=== PATIENT | female | born 1955 | race African-American/Black ===

== ENCOUNTER → 2016-11-07 16:34 | Outpatient (CLI) | payer MEDICARE ==
[2016-04-18 15:26] VITALS: BMI 38.8
[~2016-11-07 16:34] MED LIST: ADVAIR 250/501 DISK INH; ALENDRONATE SOD70 MG PO; BAYER CHEWABLE81 MG PO; BENZONATATE200 MG PO; CALCIUM 600+D T1 TA1 PO; CARTIA XT240 MG PO; CYCLOBENZAPRINE10 MG PO; DITROPAN X10 MG/BOTT PO; FEXOFENADINE H180 MG PO; FLUTICASONE PRO16 GM NS; KLOR-CON 1010 MEQ PO; LASIX20 MG PO; LEVAQUIN500 MG PO; MIRALAX17 GM PO; MUCINEX D1 TAB.SR . PO; MUCINEX DM ER1 EAC1 PO; MULTI-DAY VITAM1 TAB PO; NEXIUM40 MG PO; OXYBUTYNIN CHLOR5 MG PO; PEPCID20 MG PO; PLAQUENIL200 MG PO; PROBIOTIC1 EAC1 PO; PULMICORT0.5 MG/21 INH; QVAR8.7 G1 INH; SINGULAIR10 MG PO; STERAPRED DS 1210 MG PO; SYNTHROID50 MCG PO; TESSALON PERLE100 MG PO; XOPENEX HFA15 GM INH; ZANTAC150 MG PO; ZETIA10 MG PO; ZYLOPRIM300 MG PO
== END | disposition home or self-care (01) ==
LOC: D.MAMMO 11-05 11:00
DX: Z12.31 Encounter for screening mammogram for malignant neoplasm of breast (principal)

== ENCOUNTER 2017-02-14 17:12 | Emergency (ER) | payer MEDICARE ==
[2016-04-18 15:26] VITALS: BMI 38.8
[2017-02-14 20:19] LABS: BASOPHILS 0 % (0-2); EOSINOPHILS 0.2 % (0-7); HEMATOCRIT 44.8 % (36.0-48.0); HEMOGLOBIN 14.5 g/dL (12-16); IMMATURE GRANULOCYTES 0.2 % (0-5); MCH 29.1 pg (26.0-34.0); MCHC 32.4 g/dL (31.0-37.0); MCV 89.8 fL (80.0-100.0); MEAN PLATELET VOLUME 10.1 fL (7.4-10.4); MONOCYTES 4.8 % (2-11); NEUTROPHILS 81.8 % (40-80); PLATELET COUNT 258 10x3/uL (130-400); RBC 4.99 10x6/uL (4.00-5.40); WBC 8.1 10x3/uL (4.8-10.8)
[2017-02-14 20:28] LABS: INR 1.09 (0.85-1.17); PROTIME 13.9 SECONDS (11.6-15.0)
[2017-02-14 20:33] LABS: ALBUMIN 3.6 g/dL (3.4-5.0); ANION GAP 12.9 mmol/L (8-16); BILIRUBIN - TOTAL 0.43 mg/dL (0.2-1.3); CALCIUM 8.8 mg/dL (8.5-10.1); CARBON DIOXIDE 28.1 mmol/L (21.0-32.0); CREATININE - SERUM 0.9 mg/dL (0.6-1.3); MAGNESIUM - SERUM 2.4 mg/dL (1.8-2.4); PROTEIN - SERUM 7.4 g/dL (6.4-8.2)
== END 2017-02-14 20:55 | disposition home or self-care (01) ==
LOC: D.ER 17:12
PROVIDERS: Emergency Medicine
DX: R10.9 Unspecified abdominal pain (principal); R11.10 Vomiting, unspecified; I10 Essential (primary) hypertension

== ENCOUNTER → 2017-06-06 07:26 | Outpatient (CLI) | payer MEDICARE ==
[2016-04-18 15:26] VITALS: BMI 38.8
== END | disposition home or self-care (01) ==
LOC: D.RT 06-03 10:00 → D.RAD 06-03 11:15 → D.RT 07:26
DX: J45.909 Unspecified asthma, uncomplicated (principal)

== ENCOUNTER → 2017-09-24 09:18 | Outpatient (CLI) | payer MEDICARE ==
[2016-04-18 15:26] VITALS: BMI 38.8
== END | disposition home or self-care (01) ==
LOC: D.CT 09:18
DX: D86.89 Sarcoidosis of other sites (principal)

== ENCOUNTER 2018-02-25 13:28 | Day surgery (SDC) | payer MEDICARE ==
[~2018-02-25] VITALS: Ht 157.5 cm; Wt 96.4 kg
--- NOTE | ~2018-02-25 | OP ---
PATIENT NAME: ALTAF JHA MEDICAL RECORD: [id number] :55 LOCATION:D.OPS ADMISSION DATE: SURGEON: BHAVESH KING MD DATE OF OPERATION: 02/25/2018 PROCEDURE: EGD with biopsy. REFERRING PHYSICIAN: Missy Zheng MD INDICATIONS: Ms. Jah is a delightful 62-year-old woman with history of sarcoidosis, COPD, and asthma, who has a history of gastritis. Her last EGD on 01/19/2016 showed a distal esophageal ring, which was dilated; small sliding-type hiatal hernia; gastritis; and several duodenal bulbar nodules. Duodenal biopsies showed Tracey's gland hyperplasia. Gastric biopsies showed minimal chronic gastritis with focal incipient intestinal metaplasia. H. pylori negative. Mid and distal esophageal biopsy showed chronic active esophagitis, mild (reflux type). She has been having some symptoms of nausea, but her reflux has been well controlled on Zantac 150 mg twice a day. Previously, she had been on Nexium for many years. She presents for outpatient EGD. PREMEDICATIONS: Total IV anesthesia (COPD, sarcoidosis), propofol 210 mg. INSTRUMENT: Olympus video gastroscope. PROCEDURE AND FINDINGS: After receiving informed consent, Ms. Jha's posterior pharynx was anesthetized with Cetacaine spray. She was placed in left lateral decubitus position and sedated as per anesthesia. After achieving adequate level of sedation, gastroscope was introduced per orally and advanced to the duodenum without difficulty. The esophageal mucosa was without erythema, ulcers, strictures, or masses; appeared normal down the GE junction. Small sliding-type hiatal hernia was present. There were streaks of erythema in the antrum and antral biopsies were obtained to rule out Helicobacter pylori or intestinal metaplasia. In the distal body of the stomach, was a cluster of 3-4 shallow ulcers, nonhemorrhagic. No visible vessels. Biopsies were taken around the ulcer bases. No lesions were seen in cardia or fundus. Pylorus was patent and competent. Duodenal mucosa was without erythema or ulcers, appeared normal to the second portion. Gastroscope was then withdrawn. Ms. Jha tolerated procedure well. No immediate complications. ASSESSMENT: 1. Small sliding-type hiatal hernia. 2. Mild gastritis. 3. Gastric ulcers in the body of the stomach, possibly a sequela of recent Medrol Dosepak. However, rule out H. pylori. 4. Nausea. RECOMMENDATIONS: 1. Followup histopathology. 2. Continue Zantac 150 mg twice a day. 3. Continue sucralfate t.i.d. 4. Recommend Protonix 40 mg daily for 3 months and then followup EGD in 3 months to document healing of gastric ulcers. TRANSINT:[id number] Voice Confirmation ID: [id number] DOCUMENT ID: [id number] OPERATIVE REPORT [id number] ALTAF JHA TERRI MD at 1832 CC: MISSY ZHENG [id number] DICTATION DATE: 02/25/18 1615 WINE MERCHANT: 02/25/18 1638 [facility] 02/25/18 [address] [place] [address]
[2018-02-25 14:03] LABS: HEMATOCRIT 42.8 % (36.0-48.0); HEMOGLOBIN 14.1 g/dL (12-16); MCHC 32.9 g/dL (31.0-37.0); MCV 87.9 fL (80.0-100.0); MEAN PLATELET VOLUME 9.9 fL (7.4-10.4); RBC 4.87 10x6/uL (4.00-5.40); RDW 14.3 % (11.5-14.5); WBC 7.3 10x3/uL (4.8-10.8)
[2018-02-25 14:16] LABS: ANION GAP 10.7 mmol/L (8-16); CALCIUM 9.2 mg/dL (8.5-10.1); CARBON DIOXIDE 28.6 mmol/L (21.0-32.0); CREATININE - SERUM 0.9 mg/dL (0.6-1.3); POTASSIUM - SERUM 3.3 mmol/L (3.5-5.1)
[2018-02-25] MEDS ORDERED: ELIQUIS5 MG PO (14:25)
[2018-02-25] MEDS ORDERED: ADVAIR 100/501 DISK INH (14:30)
[2018-02-25 14:39] VITALS: Ht 157.5 cm; Wt 96.4 kg
== END 2018-02-25 17:00 | disposition home or self-care (01) ==
LOC: D.OPS 13:28
PROVIDERS: Anesthesiology
DX: K25.9 Gastric ulcer, unspecified as acute or chronic, without hemorrhage or perforation (principal); K29.70 Gastritis, unspecified, without bleeding; K44.9 Diaphragmatic hernia without obstruction or gangrene

== ENCOUNTER → 2018-04-24 16:28 | Outpatient (CLI) | payer MEDICARE ==
[2018-02-25 14:39] VITALS: BMI 38.8
[~2018-04-24 16:28] MED LIST changes: +ADVAIR 100/501 DISK INH; +ELIQUIS5 MG PO
== END | disposition home or self-care (01) ==
LOC: D.MAMMO 16:15
DX: Z12.31 Encounter for screening mammogram for malignant neoplasm of breast (principal)

== ENCOUNTER 2018-06-05 13:44 | Day surgery (SDC) | payer MEDICARE ==
[~2018-06-05] VITALS: Ht 157.5 cm; Wt 97.3 kg
--- NOTE | ~2018-06-05 | OP ---
PATIENT NAME: ALTAF JHA MEDICAL RECORD: [id number] :55 LOCATION:[facility] ADMISSION DATE: SURGEON: BHAVESH KING MD DATE OF OPERATION: 06/05/2018 REFERRING PHYSICIAN: Missy Zheng MD INDICATIONS: Ms. Jha is a delightful 62-year-old woman with a history of sarcoidosis, COPD, asthma, and gastric ulcers. Her last EGD on 02/25/2018 (for evaluation of nausea) showed a small sliding-type hiatal hernia, mild gastritis, and superficial gastric ulcers in the body of the stomach, possibly sequelae of recent Medrol Dosepak. Biopsies from the antrum were negative for Helicobacter pylori. She has been on Protonix 40 mg daily, Zantac 150 mg twice a day, and sucralfate 1 gram three times a day. She presents for followup EGD. PREMEDICATIONS: Total IV anesthesia (ASA IV), propofol 200 mg. INSTRUMENT: Olympus video gastroscope. PROCEDURE AND FINDINGS: After receiving informed consent, Ms. Jha's posterior pharynx was anesthetized with Cetacaine spray, placed in the left lateral decubitus position, and sedated as per anesthesia. After achieving an adequate level of sedation, gastroscope was introduced per orally and advanced to the duodenum without difficulty. The esophageal mucosa was without erythema, ulcers, strictures, or masses; and appeared normal down the GE junction. Small hiatal hernia was present. Gastric mucosa was notable for mild streaks of erythema in the antrum and the antral biopsies were obtained. The previously seen ulcers in the gastric body had healed. No lesions were seen in the cardia or fundus. Pylorus was patent and competent. Duodenal mucosa was without erythema or ulcers, appeared normal to the second portion. Gastroscope was then withdrawn. Ms. Jha tolerated the procedure well. No immediate complications. ASSESSMENT: 1. Healed gastric ulcers. 2. Mild gastritis. 3. Small hiatal hernia. RECOMMENDATIONS: 1. Followup histopathology. 2. Continue Protonix 40 mg daily. 3. Ranitidine 150 mg twice a day. 4. Sucralfate 1 gram three times a day. TRANSINT:[id number] Voice Confirmation ID: [id number] DOCUMENT ID: [id number] BHAVESH KING MD at 6452 CC: MISSY ZHENG [id number] DICTATION DATE: 06/05/18 1527 BLOOD BANK BUSINESS MANAGER: 06/05/182057 [facility] 06/05/18 [facility] [address] [place] [address]
[2018-06-05 14:19] LABS: HEMATOCRIT 40.1 % (36.0-48.0); HEMOGLOBIN 13.3 g/dL (12-16); MCH 28.9 pg (26.0-34.0); MCHC 33.2 g/dL (31.0-37.0); RBC 4.61 10x6/uL (4.00-5.40); RDW 14.2 % (11.5-14.5); WBC 6.9 10x3/uL (4.8-10.8)
[2018-06-05 14:39] VITALS: BP 130/63; Ht 157.5 cm; Wt 97.3 kg
== END 2018-06-05 16:55 | disposition home or self-care (01) ==
LOC: D.OPS 13:44
PROVIDERS: Anesthesiology
DX: K29.70 Gastritis, unspecified, without bleeding (principal); K44.9 Diaphragmatic hernia without obstruction or gangrene; Z87.11 Personal history of peptic ulcer disease; D86.9 Sarcoidosis, unspecified; J44.9 Chronic obstructive pulmonary disease, unspecified; Z01.812 Encounter for preprocedural laboratory examination

== ENCOUNTER → 2018-06-06 10:48 | Outpatient (CLI) | payer MEDICARE ==
[2018-06-05 14:39] VITALS: BMI 39.2
== END | disposition home or self-care (01) ==
LOC: D.RT 10:48
DX: D86.0 Sarcoidosis of lung (principal)

== ENCOUNTER → 2018-07-02 10:58 | Outpatient (CLI) | payer MEDICARE ==
[2018-06-05 14:39] VITALS: BMI 39.2
== END | disposition home or self-care (01) ==
LOC: D.CT 10:58
DX: D86.0 Sarcoidosis of lung (principal)

== ENCOUNTER → 2018-08-13 12:38 | Outpatient (CLI) | payer MEDICARE ==
[2018-06-05 14:39] VITALS: BMI 39.2
[2018-08-13 13:30] LABS: BASOPHILS 0.1 % (0-2); EOSINOPHILS 0.2 % (0-7); HEMOGLOBIN 13.7 g/dL (12-16); IMMATURE GRANULOCYTES 0.5 % (0-5); LYMPHOCYTES 7.5 % (15-50); MCH 28.5 pg (26.0-34.0); MCHC 33.4 g/dL (31.0-37.0); MCV 85.2 fL (80.0-100.0); MEAN PLATELET VOLUME 9.5 fL (7.4-10.4); MONOCYTES 2.8 % (2-11); NEUTROPHILS 88.9 % (40-80); PLATELET COUNT 303 10x3/uL (130-400); RBC 4.81 10x6/uL (4.00-5.40); RDW 14.6 % (11.5-14.5); WBC 16.1 10x3/uL (4.8-10.8)
[2018-08-13 13:48] LABS: ALBUMIN 3.4 g/dL (3.4-5.0); ANION GAP 17.6 mmol/L (8-16); BILIRUBIN - TOTAL 0.22 mg/dL (0.2-1.3); CARBON DIOXIDE 24.5 mmol/L (21.0-32.0); POTASSIUM - SERUM 4.1 mmol/L (3.5-5.1); PROTEIN - SERUM 7.3 g/dL (6.4-8.2)
== END | disposition home or self-care (01) ==
LOC: D.LAB 12:38
PROVIDERS: Internal Medicine Pulmonary Disease
DX: D86.0 Sarcoidosis of lung (principal)

== ENCOUNTER → 2018-11-05 07:46 | Outpatient (CLI) | payer MEDICARE ==
[2018-06-05 14:39] VITALS: BMI 39.2
[2018-11-05 09:54] LABS: ALBUMIN 3.8 g/dL (3.4-5.0); ANION GAP 15.3 mmol/L (8-16); BILIRUBIN - TOTAL 0.34 mg/dL (0.2-1.3); CALCIUM 9.2 mg/dL (8.5-10.1); POTASSIUM - SERUM 3.3 mmol/L (3.5-5.1); PROTEIN - SERUM 7.6 g/dL (6.4-8.2)
[2018-11-06 07:32] LABS: VITAMIN D 25 HYDROXY 39.5 ng/mL (30.0-100.0)
== END | disposition home or self-care (01) ==
LOC: D.RT 07:46
PROVIDERS: ATTEND Internal Medicine Pulmonary Disease
DX: J45.909 Unspecified asthma, uncomplicated (principal); D86.0 Sarcoidosis of lung

== ENCOUNTER → 2019-01-21 07:55 | Outpatient (CLI) | payer MEDICARE ==
[2018-06-05 14:39] VITALS: BMI 39.2
== END | disposition home or self-care (01) ==
LOC: D.HCCARDIO 07:55
PROVIDERS: ATTEND Internal Medicine Cardiovascular Disease
DX: I10 Essential (primary) hypertension (principal)

== ENCOUNTER → 2019-06-02 08:00 | Outpatient (CLI) | payer MEDICARE ==
[2018-06-05 14:39] VITALS: BMI 39.2
== END ==
LOC: D.MAMMO 04-28 10:15
PROVIDERS: ATTEND Family Medicine
DX: Z12.31 Encounter for screening mammogram for malignant neoplasm of breast (principal)

== ENCOUNTER → 2019-06-30 12:30 | Outpatient (CLI) | payer MEDICARE ==
[2018-06-05 14:39] VITALS: BMI 39.2
== END | disposition home or self-care (01) ==
LOC: D.RAD 12:30
PROVIDERS: ATTEND Internal Medicine Pulmonary Disease
DX: J47.9 Bronchiectasis, uncomplicated (principal)

== ENCOUNTER 2019-09-28 13:33 | Day surgery (SDC) | payer MEDICARE ==
[~2019-09-28] VITALS: Ht 157.5 cm; Wt 103.6 kg
[2019-09-28 14:22] LABS: ANION GAP 12.3 mmol/L (8-16); CARBON DIOXIDE 28.7 mmol/L (21.0-32.0)
[2019-09-28] MEDS ORDERED: PEPCID AC20 MG PO (14:26)
[2019-09-28 14:37] VITALS: BP 142/62; Ht 157.5 cm; Wt 103.6 kg
[2019-09-28] MEDS ORDERED: TRESIBA FL100 UNIT/1 SC (14:40)
[2019-09-28 14:53] LABS: HEMATOCRIT 42.3 % (36.0-48.0); HEMOGLOBIN 13.5 g/dL (12-16); MCH 28.4 pg (26.0-34.0); MCHC 31.9 g/dL (31.0-37.0); MCV 89.1 fL (80.0-100.0); MEAN PLATELET VOLUME 9.9 fL (7.4-10.4); RBC 4.75 10x6/uL (4.00-5.40); RDW 14.1 % (11.5-14.5); WBC 8.4 10x3/uL (4.8-10.8)
--- NOTE | 2019-09-28 17:07 | NUR ---
1630 IV REMOVED AND INSTRUCTIONS GIVEN. PT WILL CALL IN THE MORNING ABOUT ELIQUEST. PT ON HOME O2
--- NOTE | 2019-09-29 16:37 | OP ---
PATIENT NAME: ALTAF JHA MEDICAL RECORD: [id number] :55 LOCATION:DElyOPS ADMISSION DATE: SURGEON: WILLEM GARCIA DO DATE OF OPERATION: 09/28/2019 PROCEDURE: EGD with biopsies. INDICATIONS FOR PROCEDURE: Dysphagia, epigastric pain, and nausea. SCOPE: Olympus video gastroscope. MEDICATIONS: Propofol 200 mg IV per anesthesia. ESTIMATED BLOOD LOSS: Minimal. COMPLICATIONS: None. FINDINGS: Informed consent was given. The patient was made comfortable with the above medication. After reaching an adequate level of sedation by slow IV push, the patient was placed on her left side. The endoscope was advanced under direct visualization through the mouth to the second portion of the duodenum with ease. The esophagus appeared normal down to the GE junction. At the GE junction, there was evidence of LA class A reflux-induced esophagitis. Cold forceps, biopsies were taken from the squamocolumnar junction to rule out the presence of Escobar's mucosa. The endoscope was advanced beyond the GE junction into the stomach and retroflexed to view the cardia, where a very small sliding hiatal hernia was present. The fundus of the stomach appeared normal. In the body and antrum of the stomach, there were streaky and patchy erythematous areas that appeared somewhat friable. There were also some granular areas within the body of the stomach itself. Appearances were consistent with mild gastritis. Random cold forceps biopsies were taken from the antrum and incisura to submit for histopathology and to rule out the presence of H. pylori. The endoscope was advanced beyond the pylorus into the duodenum, which appeared normal to the second portion. Cold forceps, biopsies were taken randomly to submit for histopathology. The endoscope was withdrawn from the patient. The patient tolerated the procedure well and there were no immediate complications. IMPRESSION: 1. LA class A reflux-induced esophagitis. 2. Small sliding hiatal hernia. 3. Mild gastritis. PLAN AND RECOMMENDATIONS: 1. Discharge home when recovery parameters are met. 2. Follow up biopsy specimen results. 3. Gastric emptying scan to evaluate the pain and nausea. 4. Continue Pepcid 40 mg daily, but change to evening dosing and start omeprazole 40 mg daily in the a.m. or equivalent PPI. We will continue PPI for 60 days, then reevaluate to see if this can be discontinued or not. 5. Follow up in GI clinic in 4-6 weeks. TRANSINT:[id number] Voice Confirmation ID: [id number] DOCUMENT ID: [id number] OPERATIVE REPORT [id number] ALTAF JHA NATHAN A DO at 1637 CC: [id number] DICTATION DATE: 09/28/19 1540 OFFSHORING MANAGER: 09/28/19 2219 [facility] 09/28/19 [id number] [place] [address]
== END 2019-09-28 16:40 | disposition home or self-care (01) ==
LOC: D.OPS 13:33
PROVIDERS: Anesthesiology; ATTEND Internal Medicine Gastroenterology
DX: R13.10 Dysphagia, unspecified (principal); R10.13 Epigastric pain; R11.0 Nausea; K21.0 Gastro-esophageal reflux disease with esophagitis; K44.9 Diaphragmatic hernia without obstruction or gangrene; K29.60 Other gastritis without bleeding; Z86.010 Personal history of colon polyps; K57.32 Diverticulitis of large intestine without perforation or abscess without bleeding; K59.09 Other constipation

== ENCOUNTER 2019-10-01 15:31 | Inpatient (IN) | payer MEDICARE ==
[~2019-10-01] VITALS: Ht 157.5 cm; Wt 105.5 kg
[~2019-10-01 15:31] MED LIST changes: +PEPCID AC20 MG PO; +TRESIBA FL100 UNIT/1 SC
--- NOTE | 2019-10-01 16:07 | NUR ---
PATIENT TO ROOM AT THIS TIME. NO COMPLAINTS OR SIGNS OF DISTRESS. VS STABLE. O2 PLACED AT 2L CALL LIGHT WITHIN RECH.
[2019-10-01 16:19] VITALS: BP 96/69; Ht 157.5 cm; Wt 105.5 kg
--- NOTE | 2019-10-01 16:39 | NUR ---
IV SITED TO LEFT FOREARM AFTER 2 ATTEPTS WITH 22G. TOLERATED WITHOUT C/O
--- NOTE | 2019-10-01 17:30 | NUR ---
PATIENT 20G STARTED IN RIGHT AC. BY PRAVEEN BAIG. X 1 STICK. PTIENT TOLERATED WITH SMALL AMOUNT OF PAIN. WAITING FOR CTA TO BE COMPLETED. CALL LIGHT WITHIN REACH.
--- NOTE | 2019-10-01 17:50 | NUR ---
PATIENT 20G. BLOWN. MED IMG. TECH STATED SHE FLUSHED IT AND IT BLEW. IV REMOVED WITH CATH TIP INTACT. CALL LIGHT WITHIN REACH.
[2019-10-01 18:01] LABS: BASOPHILS 0.1 % (0-2); EOSINOPHILS 0.5 % (0-7); HEMATOCRIT 39.5 % (36.0-48.0); HEMOGLOBIN 12.9 g/dL (12-16); IMMATURE GRANULOCYTES 0.2 % (0-5); LYMPHOCYTES 10.7 % (15-50); MCH 29.1 pg (26.0-34.0); MCHC 32.7 g/dL (31.0-37.0); MEAN PLATELET VOLUME 9.4 fL (7.4-10.4); MONOCYTES 6.3 % (2-11); NEUTROPHILS 82.2 % (40-80); PLATELET COUNT 308 10x3/uL (130-400); RBC 4.44 10x6/uL (4.00-5.40); RDW 14.1 % (11.5-14.5)
[2019-10-01 18:15] LABS: APTT 28.5 SECONDS (22.8-39.4); INR 1.17 (0.85-1.17); PROTIME 14.9 SECONDS (11.6-15.0)
[2019-10-01 18:16] LABS: ALBUMIN 3.6 g/dL (3.4-5.0); ANION GAP 11.3 mmol/L (8-16); BILIRUBIN - TOTAL 0.37 mg/dL (0.2-1.3); CALCIUM 9.2 mg/dL (8.5-10.1); CARBON DIOXIDE 29.1 mmol/L (21.0-32.0); CREATININE - SERUM 1.1 mg/dL (0.6-1.3); D-DIMER-QUANTITATIVE 0.29 ug/mLFEU (0.20-0.54); MAGNESIUM - SERUM 2.2 mg/dL (1.8-2.4); POTASSIUM - SERUM 3.4 mmol/L (3.5-5.1); PROTEIN - SERUM 7.7 g/dL (6.4-8.2)
--- NOTE | 2019-10-01 18:59 | NUR ---
20 G. RESTARTED IN RIGHT FA X 1 STICK. CALLED MEDICAL IMAGING AND LET THEM KNOW. PATIENT TOLERATED WITH SMALL AMOUNT OF PAIN. CALL LIGHT WITHIN REACH.
[2019-10-01 20:00] VITALS: BP 156/87
[2019-10-01 21:05] LABS: NITRITE NEGATIVE (NEGATIVE)
[2019-10-01 21:06] LABS: BILIRUBIN NEGATIVE (NEGATIVE); GLUCOSE NEGATIVE (NEGATIVE); KETONE NEGATIVE (NEGATIVE); UROBILINOGEN NORMAL (NORMAL)
[2019-10-01 21:08] LABS: BACTERIA FEW /hpf (NEGATIVE); RED CELLS - URINE OCC /hpf (0-5); WHITE CELLS - URINE 0-5 /hpf (NEGATIVE)
[2019-10-02] VITALS: BP 146/81
[2019-10-02 04:00] VITALS: BP 127/72
--- NOTE | 2019-10-02 06:34 | NUR ---
ASSESSED AT THE BEGINNING OF THE SHIFT. PT IS ALERT AND ORIENTED, ABLE TO VERBALIZE NEEDS. AT THE BEGINNING OF THE SHIFT SHE WAS TAKEN TO HAVE A CAT SCAN AND THEN RETURNED. SHE HAS BEEN UP TO THE BATHROOM AD LISA AND HAD NOT HAD ANY PROBLEMS DURING THE NIGHT. AT THIS TIME SHE IS AWAKE AND GETTING READ FOR THE DAY.
--- NOTE | 2019-10-02 07:45 | NUR ---
SITTING UP AT BEDSIDE WITH EYES OPEN, ALERT AND ORIENTED. IV LOCATED TO LEFT FOREARM CURRENTLY RUNNING NS @ 100ML. NO S/S OF DISTRESS, DENIES NEEDS AT THIS TIME, WILL CONT TO MONITOR.
[2019-10-02 08:43] VITALS: BP 150/78
--- NOTE | 2019-10-02 10:11 | NUR ---
Rehab Note- Acute Inpatient REhab prescreen order received. The patient has not had her PT Eval completed to see her physical mobility. Will continue to follow at this time. Thank you for this referral! Barbara Boyle RN Clinical Liaison, [facility] Rehab
[2019-10-02 10:15] LABS: HEMATOCRIT 42.3 % (36.0-48.0); HEMOGLOBIN 13.4 g/dL (12-16); LYMPHOCYTES 5.3 % (15-50); MCHC 31.7 g/dL (31.0-37.0); MCV 88.5 fL (80.0-100.0); MEAN PLATELET VOLUME 9.6 fL (7.4-10.4); NEUTROPHILS 93.8 % (40-80); PLATELET COUNT 315 10x3/uL (130-400); RBC 4.78 10x6/uL (4.00-5.40); RDW 13.8 % (11.5-14.5)
[2019-10-02 10:25] LABS: WBC 7.2 10x3/uL (4.8-10.8)
[2019-10-02 10:46] LABS: ALBUMIN 3.7 g/dL (3.4-5.0); ANION GAP 14.9 mmol/L (8-16); BILIRUBIN - TOTAL 0.31 mg/dL (0.2-1.3); CALCIUM 9.1 mg/dL (8.5-10.1); CARBON DIOXIDE 25.3 mmol/L (21.0-32.0); PROTEIN - SERUM 7.7 g/dL (6.4-8.2)
[2019-10-02 10:48] LABS: POTASSIUM - SERUM 4.2 mmol/L (3.5-5.1)
[2019-10-02 12:12] VITALS: BP 153/87
--- NOTE | 2019-10-02 16:35 | NUR ---
OT NOTE: PT COMPLETED SIT TO STAND WITH SBA. PT COMPLETED EOB SITTING WITH SBA EATING SNACK AT BEDSIDE TABLE. PT COMPLETED UE AROM WITH FUNCTIONAL ACTIVITIES. PT IS COOPERATIVE AND MOTIVATED. [phone] THANK YOU,BAMBI NGUYEN
[2019-10-02 17:03] VITALS: BP 154/90
[2019-10-02 20:26] VITALS: BP 148/83
[2019-10-03] VITALS (7 sets, daily range): BP systolic 119–166; BP diastolic 59–94
[2019-10-03 05:39] LABS: BASOPHILS 0 % (0-2); EOSINOPHILS 0 % (0-7); HEMATOCRIT 37.3 % (36.0-48.0); HEMOGLOBIN 12.1 g/dL (12-16); IMMATURE GRANULOCYTES 0.3 % (0-5); LYMPHOCYTES 3.9 % (15-50); MCH 28.4 pg (26.0-34.0); MCHC 32.4 g/dL (31.0-37.0); MCV 87.6 fL (80.0-100.0); MEAN PLATELET VOLUME 9.9 fL (7.4-10.4); MONOCYTES 1.3 % (2-11); NEUTROPHILS 94.5 % (40-80); PLATELET COUNT 291 10x3/uL (130-400); RBC 4.26 10x6/uL (4.00-5.40); RDW 14.3 % (11.5-14.5)
[2019-10-03 05:41] LABS: WBC 14.7 10x3/uL (4.8-10.8)
[2019-10-03 06:05] LABS: ALBUMIN 3.1 g/dL (3.4-5.0); BILIRUBIN - TOTAL 0.25 mg/dL (0.2-1.3); CALCIUM 8.5 mg/dL (8.5-10.1); CREATININE - SERUM 0.9 mg/dL (0.6-1.3); PROTEIN - SERUM 7.2 g/dL (6.4-8.2)
--- NOTE | 2019-10-03 09:21 | NUR ---
SHE IS WEARING 2 LITERS NC. NO SOB. DENIES ANY NEEDS.
--- NOTE | 2019-10-03 19:10 | NUR ---
ALERT AND ORIENTED. WEARING 2L NC. HAS RFA IV THAT IS INFUSING NS @ 100. INSTRUCTED ON NEED OF SPUTUM CULTURE. CALL LIGHT IN REACH. CPOC.
--- NOTE | 2019-10-03 20:35 | NUR ---
TYLENOL PROVIDED WITH HS MEDICATIONS FOR COMPLAINTS OF ACHING IN CHEST. PATIENT STATES "IT FEELS LIKE THE PLEURISY PAIN I'VE HAD BEFORE." TOELRATED MEDICATIONS WELL. DENIES FURTHER NEEDS. CALL LIGHT IN REACH. CPOC.
--- NOTE | 2019-10-03 23:00 | NUR ---
I have reviewed this patient and I concur with the Shift Assessment completed by the Licensed Practical Nurse today this shift.
[2019-10-04] VITALS: BP 148/78
[2019-10-04 04:00] VITALS: BP 103/49
[2019-10-04 06:39] LABS: BASOPHILS 0 % (0-2); EOSINOPHILS 0 % (0-7); HEMATOCRIT 39.6 % (36.0-48.0); IMMATURE GRANULOCYTES 0.4 % (0-5); LYMPHOCYTES 3.7 % (15-50); MCH 28.8 pg (26.0-34.0); MCHC 32.8 g/dL (31.0-37.0); MCV 87.6 fL (80.0-100.0); MONOCYTES 1.5 % (2-11); NEUTROPHILS 94.4 % (40-80); PLATELET COUNT 334 10x3/uL (130-400); RBC 4.52 10x6/uL (4.00-5.40); RDW 14.4 % (11.5-14.5); WBC 13.4 10x3/uL (4.8-10.8)
[2019-10-04 07:13] LABS: ALBUMIN 3.5 g/dL (3.4-5.0); ANION GAP 14.8 mmol/L (8-16); BILIRUBIN - TOTAL 0.3 mg/dL (0.2-1.3); CALCIUM 8.8 mg/dL (8.5-10.1); CARBON DIOXIDE 24.7 mmol/L (21.0-32.0); CREATININE - SERUM 0.9 mg/dL (0.6-1.3); MAGNESIUM - SERUM 2.3 mg/dL (1.8-2.4); PHOSPHOROUS 3.8 mg/dL (2.5-4.9); POTASSIUM - SERUM 3.5 mmol/L (3.5-5.1); PROTEIN - SERUM 7.7 g/dL (6.4-8.2)
[2019-10-04 08:38] VITALS: BP 132/74
[2019-10-04 12:33] VITALS: BP 152/89
[2019-10-04 17:07] VITALS: BP 151/85
--- NOTE | 2019-10-04 18:09 | NUR ---
SHE IS WEARING 2 LITERS NC. NO SOB, DENIES ANY NEEDS AT THIS PRESENT TIME.
[2019-10-04 20:00] VITALS: BP 108/33
[2019-10-05] VITALS: BP 138/77
--- NOTE | 2019-10-05 01:50 | NUR ---
I have reviewed this patient and I concur with the Shift Assessment completed by the Licensed Practical Nurse today this shift.
[2019-10-05 02:42] LABS: BILIRUBIN NEGATIVE (NEGATIVE); GLUCOSE 100 mg/dL (NEGATIVE); KETONE NEGATIVE (NEGATIVE); NITRITE NEGATIVE (NEGATIVE); SPECIFIC GRAVITY 1.015 (1.005-1.020); UROBILINOGEN NORMAL (NORMAL)
[2019-10-05 04:00] VITALS: BP 143/83
[2019-10-05 05:17] LABS: BASOPHILS 0 % (0-2); EOSINOPHILS 0 % (0-7); HEMATOCRIT 38.2 % (36.0-48.0); HEMOGLOBIN 12.5 g/dL (12-16); IMMATURE GRANULOCYTES 0.4 % (0-5); LYMPHOCYTES 5.4 % (15-50); MCH 28.4 pg (26.0-34.0); MCHC 32.7 g/dL (31.0-37.0); MCV 86.8 fL (80.0-100.0); MEAN PLATELET VOLUME 10.1 fL (7.4-10.4); MONOCYTES 7.1 % (2-11); NEUTROPHILS 87.1 % (40-80); PLATELET COUNT 331 10x3/uL (130-400); RDW 14.1 % (11.5-14.5); WBC 11.6 10x3/uL (4.8-10.8)
[2019-10-05 06:05] LABS: ALBUMIN 3.2 g/dL (3.4-5.0); ANION GAP 10.6 mmol/L (8-16); BILIRUBIN - TOTAL 0.2 mg/dL (0.2-1.3); CALCIUM 8.6 mg/dL (8.5-10.1); CARBON DIOXIDE 27.2 mmol/L (21.0-32.0); CREATININE - SERUM 0.9 mg/dL (0.6-1.3); POTASSIUM - SERUM 3.8 mmol/L (3.5-5.1); PROTEIN - SERUM 7.2 g/dL (6.4-8.2)
[2019-10-05 08:56] VITALS: BP 140/76
--- NOTE | 2019-10-05 09:13 | NUR ---
HER IV IS OUT, IT WAS LEAKING. NO SOB, WEARING HER 2 LITERS NC PRN. HAD A SHOWER. NO NEW NEEDS.
--- NOTE | 2019-10-05 13:23 | MORECARE ---
CASE MANAGEMENT DISCHARGE SUMMARY PATIENT: ALTAF JHA UNIT: [id number] ADM DATE: 10/01/19 AGE: 63 : 55 SEX: F ROOM/BED: D.2211 AUTHOR: AMNA CARRASCO PHYSICIAN: REFERRING PHYSICIAN: MISSY ZHENG MD DATE OF SERVICE: 10/05/19 Discharge Plan Patient Name[facility]TAF [facility]HA [facility] [facility] 1955 Planned Disposition: Home or Self Care Anticipated Discharge Date: Discharge Date: Expected LOS: Initial Reviewer: [email or web address] Initial Review Date: 10/01/2019 Generated: 10/05/19 2:22 pm DCPIA - Discharge Planning Initial Assessment Updated by [email or web address]: An Colon on 10/05/19 1:21 pm * Is the patient Alert and Oriented? Yes * How many steps to enter\exit or inside your home? * PCP MARCE * Pharmacy [facility] * Preadmission Environment Home Alone * ADLs Independent * Equipment Nebulizer Oxygen * List name and contact numbers for known caregivers / representatives who currently or will assist patient after discharge: HEBERT ATKINS (SISTER) [phone] * Verbal permission to speak to the caregivers and representatives has been obtained from the patient. N/A * Community resources currently utilized None * Additional services required to return to the preadmission environment? No * Can the patient safely return to the preadmission environment? Yes * Has this patient been hospitalized within the prior 30 days at any hospital? No Patient Name: ALTAF JHA Page [id number] at 1323 All edits/amendments must be made on the electronic document DICTATION DATE: 10/05/19 1322 VENETIAN BLIND ASSEMBLER: ANCA 10/05/19 1322 RPT#: [id number] DC DATE: STATUS: ADM IN [facility] [address] [place] [address] END OF REPORT
--- NOTE | 2019-10-05 13:31 | MORECARE ---
CASE MANAGEMENT DISCHARGE SUMMARY PATIENT: ALTAF JHA UNIT: [id number] ADM DATE: 10/01/19 AGE: 63 : 55 SEX: F ROOM/BED: D.2211 AUTHOR: DANILO,DOC PHYSICIAN: REFERRING PHYSICIAN: MISSY ZHENG MD DATE OF SERVICE: 10/05/19 Discharge Plan Patient Name: ALTAF JHA Facility: [facility]:[place] : 1955 Planned Disposition: Home or Self Care Anticipated Discharge Date: Discharge Date: Expected LOS: Initial Reviewer: [email or web address] Initial Review Date: 10/01/2019 Generated: 10/05/19 2:31 pm Comments DCP- Discharge Planning Updated by [email or web address]: An Colon on 10/05/19 12:[address] Patient Name: ALTAF JHA Admission Status: Urgent Accout number: [id number] Admission Date: 10-01-2019 : 1955 Admission Diagnosis: Attending: MISSY ZHENG Current LOS: 4 Anticipated DC Date: Planned Disposition: Home or Self Care Primary Insurance: MEDICARE A & B Discharge Planning Comments: CM met with patient to complete initial dc planning assessment. CM educated patient on the CM role and verbal consent given by patient to complete assessment. Patient lives at home by herself where she is independent with her care . At discharge patient plans to return home and feels this is a safe discharge. 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 CM discussed availability of home health, rehab services, and medical equipment. She has a nebulizer and home O2 and concentrator at home from [facility]. IIMM served and explained. RICHELLE for [facility] also obtained and placed on chart with the [facility]. Patient denied known discharge needs at this time. CM will continue to follow and will assist as needed with dc plans/needs. Electronic Lab Technician: An Colon DCPIA - Discharge Planning Initial Assessment Updated by [email or web address]: An Colon on 10/05/19 1:21 pm * Is the patient Alert and Oriented? Yes * How many steps to enter\exit or inside your home? * PCP MARCE * Pharmacy [facility] * Preadmission Environment Home Alone * ADLs Independent * Equipment Nebulizer Oxygen * List name and contact numbers for known caregivers / representatives who currently or will assist patient after discharge: HEBERT ATKINS (SISTER) [phone] * Verbal permission to speak to the caregivers and representatives has been obtained from the patient. N/A * Community resources currently utilized None * Additional services required to return to the preadmission environment? No * Can the patient safely return to the preadmission environment? Yes * Has this patient been hospitalized within the prior 30 days at any hospital? No Coverage Notice Reviewer: [email or web address] Colon Notice Issued Date-Time: 10/05/2019 12:55 Notice Type: Patient Choice Letter Notice Delivered To: Patient Relationship to Patient: Linderman Operator Name: Delivery Method: HAND - Hand Delivered Kiya Days: Prior Verbal Notification: Recipient Understood Notice: Yes Recipient Signature: Yes Med Rec Note Co-signed by Attending: Coverage Notice Comment: Reviewer: [id number] Colon Notice Issued Date-Time: 10/05/2019 12:55 Notice Type: IM Discharge Notice Notice Delivered To: Patient Relationship to Patient: Linderman Operator Name: Delivery Method: HAND - Hand Delivered Kiya Days: Prior Verbal Notification: Recipient Understood Notice: Yes Recipient Signature: Yes Med Rec Note Co-signed by Attending: Coverage Notice Comment: Last DP export: 10/05/19 12:23 pm Patient Name: ALTAF JHA Page [phone] at 1331 All edits/amendments must be made on the electronic document DICTATION DATE: 10/05/19 1331 RN BURN: ANCA 10/05/19 1331 RPT#: [id number] DC DATE: STATUS: ADM IN [facility] [address] [place] [address] END OF REPORT
--- NOTE | 2019-10-05 13:47 | NUR ---
NEW IV TO THE RIGHT ARM.
--- NOTE | 2019-10-05 13:53 | NUR ---
22 gauge iv started in the left arm on my second attempt. flushed without difficulty secured with tape and tegaderm with swab cap in place. no redness or edema noted at site.
[2019-10-05 17:28] VITALS: BP 135/74
--- NOTE | 2019-10-05 19:50 | NUR ---
A&O X 4. SITTING UP ON SIDE OF BED. DENIES PAIN/SOB. NO NEEDS AT THIS TIME, WILL CONTINUE TO MONITOR.
[2019-10-05 20:00] VITALS: BP 159/79
--- NOTE | 2019-10-05 21:09 | NUR ---
OT NOTE: PT DOING VERY WELL. PT COMPLETED SIT TO STAND WITH SPV.PT COMPLETED ADL MOB WITH SPV. PT COMPLETED UE AROM EXS AT EOB WITH SPV. PT COMPLETED HAND HYGIENE WITH SPV. [phone] THANK YOU,BAMBI NGUYEN
[2019-10-06 04:00] VITALS: BP 145/65
--- NOTE | 2019-10-06 05:44 | NUR ---
I have reviewed this patient and I concur with the Shift Assessment completed by the Licensed Practical Nurse today this shift.
[2019-10-06 05:53] LABS: BASOPHILS 0 % (0-2); EOSINOPHILS 0 % (0-7); HEMATOCRIT 40.4 % (36.0-48.0); HEMOGLOBIN 13.1 g/dL (12-16); IMMATURE GRANULOCYTES 0.3 % (0-5); LYMPHOCYTES 12.7 % (15-50); MCH 28.2 pg (26.0-34.0); MCHC 32.4 g/dL (31.0-37.0); MCV 86.9 fL (80.0-100.0); MONOCYTES 9.5 % (2-11); NEUTROPHILS 77.5 % (40-80); PLATELET COUNT 308 10x3/uL (130-400); RBC 4.65 10x6/uL (4.00-5.40); RDW 14.3 % (11.5-14.5); WBC 11.6 10x3/uL (4.8-10.8)
[2019-10-06 07:07] LABS: ALBUMIN 3.3 g/dL (3.4-5.0); ANION GAP 18.4 mmol/L (8-16); BILIRUBIN - TOTAL 0.25 mg/dL (0.2-1.3); CALCIUM 8.5 mg/dL (8.5-10.1); CARBON DIOXIDE 26.4 mmol/L (21.0-32.0); CREATININE - SERUM 0.9 mg/dL (0.6-1.3); POTASSIUM - SERUM 3.8 mmol/L (3.5-5.1); PROTEIN - SERUM 6.8 g/dL (6.4-8.2)
--- NOTE | 2019-10-06 08:16 | NUR ---
PATIENT RESTING IN BED WITH RESPIRTAIONS REGULAR AND NONLABORED, ALERT AND ORIENTED. CL IN REACH
[2019-10-06 10:07] VITALS: BP 168/77
[2019-10-06] MEDS ORDERED: Vibramycin 100 MG/D5 IV (12:37)
[2019-10-06] MEDS ORDERED: PREDNISONE10 MG PO (12:43)
--- NOTE | 2019-10-06 13:31 | MORECARE ---
CASE MANAGEMENT DISCHARGE SUMMARY PATIENT: ALTAF JHA UNIT: [id number] ADM DATE: 10/01/19 AGE: 63 : 55 SEX: F ROOM/BED: D.2211 AUTHOR: DANILO,DOC PHYSICIAN: REFERRING PHYSICIAN: MISSY ZHENG MD DATE OF SERVICE: 10/06/19 Discharge Plan Patient Name: ALTAF JHA Facility: [facility]:[place] : 1955 Planned Disposition: Home or Self Care Anticipated Discharge Date: Discharge Date: Expected LOS: Initial Reviewer: [email or web address] Initial Review Date: 10/01/2019 Generated: 10/06/19 2:30 pm Comments DCP- Discharge Planning Updated by [email or web address]: An Colon on 10/06/19 12:[address] Patient Name: ALTAF JHA Encounter No: [id number] : 1955 Primary Insurance: MEDICARE A & B Anticipated DC Date: Planned Disposition: Home or Self Care External Planned Provider: : DCP follow-up note: Patient and family in agreement with discharge plan. No changes to plan. Case management will follow and assist as needed. An Colon DCP- Discharge Planning Updated by [email or web address]: An Colon on 10/05/19 12:[address] Patient Name: ALTAF JHA Admission Status: Urgent Accout number: [id number] Admission Date: 10-01-2019 : 1955 Admission Diagnosis: Attending: MISSY ZHENG Current LOS: 4 Anticipated DC Date: Planned Disposition: Home or Self Care Primary Insurance: MEDICARE A & B Discharge Planning Comments: CM met with patient to complete initial dc planning assessment. CM educated patient on the CM role and verbal consent given by patient to complete assessment. Patient lives at home by herself where she is independent with her care . At discharge patient plans to return home and feels this is a safe discharge. She stated that [employer] will be her courtesy driver home. CM discussed availability of home health, rehab services, and medical equipment. She has a nebulizer and home O2 and concentrator at home from [facility]. IIMM served and explained. RICHELLE for [facility] also obtained and placed on chart with the [facility]. Patient denied known discharge needs at this time. CM will continue to follow and will assist as needed with dc plans/needs. Fuel Operator: An Colon DCPIA - Discharge Planning Initial Assessment Updated by [email or web address]: An Colon on 10/05/19 1:21 pm * Is the patient Alert and Oriented? Yes * How many steps to enter\exit or inside your home? * PCP ZHENG * Pharmacy [facility] * Preadmission Environment Home Alone * ADLs Independent * Equipment Nebulizer Oxygen * List name and contact numbers for known caregivers / representatives who currently or will assist patient after discharge: HEBERT ATKINS (SISTER) [phone] * Verbal permission to speak to the caregivers and representatives has been obtained from the patient. N/A * Community resources currently utilized None * Additional services required to return to the preadmission environment? No * Can the patient safely return to the preadmission environment? Yes * Has this patient been hospitalized within the prior 30 days at any hospital? No Coverage Notice Reviewer: [email or web address] - An Colon Notice Issued Date-Time: 10/05/2019 12:55 Notice Type: Patient Choice Letter Notice Delivered To: Patient Relationship to Patient: Roofer Name: Delivery Method: HAND - Hand Delivered Kiya Days: Prior Verbal Notification: Recipient Understood Notice: Yes Recipient Signature: Yes Med Rec Note Co-signed by Attending: Coverage Notice Comment: Reviewer: [email or web address] Colon Notice Issued Date-Time: 10/05/2019 12:55 Notice Type: IM Discharge Notice Notice Delivered To: Patient Relationship to Patient: Roofer Name: Delivery Method: HAND - Hand Delivered Kiya Days: Prior Verbal Notification: Recipient Understood Notice: Yes Recipient Signature: Yes Med Rec Note Co-signed by Attending: Coverage Notice Comment: Last DP export: 10/05/19 12:31 pm Patient Name: ALTAF JHA Page [phone] at 1331 All edits/amendments must be made on the electronic document DICTATION DATE: 10/06/19 1330 PLUG OVERWRAP MACHINE TENDER: ANCA 10/06/19 1330 RPT#: [id number] DC DATE: STATUS: ADM IN [facility] [address] [place] [address] END OF REPORT
--- NOTE | 2019-10-06 14:36 | NUR ---
IV REMOVED WITH CATH INTACT, NO REDNESS OR EDEMA AT SITE. DISCHARGE INSTRUCTIONS GIVEN WITH PATIETN VOICING UNDERSTANDING. PATIENT TAKEN BY WHEELCHAIR TO PRIVATE CAR.
== END 2019-10-06 14:38 | disposition home or self-care (01) | DRG 193 ==
LOC: D.MS 15:31
PROVIDERS: Emergency Medicine; Family Medicine; Internal Medicine Pulmonary Disease; ADMIT Family Medicine; ATTEND Family Medicine
DX: J18.9 Pneumonia, unspecified organism (principal); J96.21 Acute and chronic respiratory failure with hypoxia; Z68.41 Body mass index [BMI] 40.0-44.9, adult; I48.20 Chronic atrial fibrillation, unspecified; I50.32 Chronic diastolic (congestive) heart failure; D86.0 Sarcoidosis of lung; E78.5 Hyperlipidemia, unspecified; E03.9 Hypothyroidism, unspecified; I11.0 Hypertensive heart disease with heart failure; E11.65 Type 2 diabetes mellitus with hyperglycemia; E87.6 Hypokalemia; M81.0 Age-related osteoporosis without current pathological fracture; E66.01 Morbid (severe) obesity due to excess calories; I48.0 Paroxysmal atrial fibrillation; I34.0 Nonrheumatic mitral (valve) insufficiency; Z79.01 Long term (current) use of anticoagulants

== ENCOUNTER → 2020-01-18 10:11 | Outpatient (CLI) | payer MEDICARE ==
[2019-10-01 16:19] VITALS: BMI 42.5
[~2020-01-18 10:11] MED LIST changes: +PREDNISONE10 MG PO; +Vibramycin 100 MG/D5 IV
== END | disposition home or self-care (01) ==
LOC: D.HCCECHO 10:11
PROVIDERS: ATTEND Internal Medicine Cardiovascular Disease
DX: I42.9 Cardiomyopathy, unspecified (principal)

== ENCOUNTER → 2020-02-03 11:57 | Outpatient (CLI) | payer MEDICARE ==
[2019-10-01 16:19] VITALS: BMI 42.5
== END | disposition home or self-care (01) ==
LOC: D.LAB 11:57
PROVIDERS: ATTEND Internal Medicine Pulmonary Disease
DX: Z11.59 Encounter for screening for other viral diseases (principal)

== ENCOUNTER → 2020-02-05 13:25 | Outpatient (CLI) | payer MEDICARE ==
[2019-10-01 16:19] VITALS: BMI 42.5
== END | disposition home or self-care (01) ==
LOC: D.RT 13:25
PROVIDERS: ATTEND Internal Medicine Pulmonary Disease
DX: J45.909 Unspecified asthma, uncomplicated (principal); D86.0 Sarcoidosis of lung; Z11.59 Encounter for screening for other viral diseases

== ENCOUNTER → 2021-01-09 13:01 | Outpatient (CLI) | payer MEDICARE ==
[2020-08-14 22:06] VITALS: BMI 42.3
[~2021-01-09 13:01] MED LIST changes: +ADVAIR HFA [SP]12 GM; +BISOPROLOL FUMAR5 MG PO; +FLOVENT HFA 22012 GM; +PROAIR HFA8.5 G1 INH; +VITAMIN D50000 UNI1 PO
== END | disposition home or self-care (01) ==
LOC: D.LAB 13:01
PROVIDERS: ATTEND Internal Medicine Pulmonary Disease
DX: Z11.52 Encounter for screening for COVID-19 (principal)

== ENCOUNTER → 2021-01-13 13:32 | Outpatient (CLI) | payer MEDICARE ==
[2020-08-14 22:06] VITALS: BMI 42.3
--- NOTE | 2021-01-13 15:17 | NUR ---
PT DID NOT WANT TO DO THE WALK TEST
== END | disposition home or self-care (01) ==
LOC: D.RT 13:32
PROVIDERS: ATTEND Internal Medicine Pulmonary Disease
DX: J45.909 Unspecified asthma, uncomplicated (principal); Z11.52 Encounter for screening for COVID-19